=== PATIENT | male | born 1960 | race African-American/Black ===

== ENCOUNTER 2018-02-06 11:43 | Emergency (ER) | payer MEDICAID ==
[~2018-02-06] VITALS: Ht 177.8 cm; Wt 110.0 kg
[2018-02-06 11:46] VITALS: BP 157/95
[2018-02-06] MEDS ORDERED: LIDOCAINE HCL 1% 20ML VIAL (Pyxis) INJ MC ONE (14:30)
[2018-02-06] MEDS ORDERED: TETANUS, DIPHTHERIA, PERTUSSIS VAC/PF 0.5ML (>7YR OLD) IM ONE (14:30)
[2018-02-06] MEDS ORDERED: BACITRACIN ZINC OINT UDPKT TOP ONE (14:30)
== END 2018-02-06 18:49 | disposition home or self-care (01) ==
LOC: ER 11:43
DX: S61.411A Laceration without foreign body of right hand, initial encounter (principal); I10 Essential (primary) hypertension; W25.XXXA Contact with sharp glass, initial encounter; Y93.89 Activity, other specified; Y92.89 Other specified places as the place of occurrence of the external cause; Y99.8 Other external cause status
CPT/HCPCS: 12002; 90471; 90715; 99283; J3490; X7700

== ENCOUNTER 2021-01-23 11:05 | Inpatient (IN) | payer MEDICAID ==
[~2021-01-23] VITALS: Ht 182.9 cm; Wt 139.7 kg
[2021-01-23] VITALS (23 sets, daily range): BP systolic 79–109; BP diastolic 53–72
[2021-01-23] MEDS ORDERED: LEVOFLOXACIN 750MG PREMIX 150 ML IV ONE (11:45)
[2021-01-23] MEDS ORDERED: FUROSEMIDE 20MG/2ML VIAL IVP ONE (11:45)
[2021-01-23 11:58] LABS: BASOPHILS % 0.2 % (0.0-2.0); EOSINOPHILS % 0.2 % (0.0-5.0); HEMATOCRIT. 44.2 % (42.0-52.0); HEMOGLOBIN. 14.4 g/dL (14.0-18.0); LYMPHOCYTES % 10.6 % (20.0-50.0); MEAN CORPUSCULAR HEMOGLOBIN 29.9 pg (28.0-32.0); MEAN CORPUSCULAR VOLUME 91.6 fL (80.0-94.0); MONOCYTES % 1.1 % (2.0-8.0); NEUTROPHILS % 87.9 % (40.0-76.0); PLATELET 112 x1000/uL (130-400); RED BLOOD CELL COUNT 4.82 mill/uL (4.7-6.1); RED CELL DISTRIBUTION WIDTH 13.9 % (11.6-14.6)
[2021-01-23 12:00] LABS: CHLORIDE 100 mEq/L (98-107)
[2021-01-23] MEDS ORDERED: NITROGLYCERIN 0.4MG TABLET SL SL ONE (12:00)
[2021-01-23] MEDS ORDERED: LABETALOL 5MG/ML SYR 20 MG/4 ML SYRINGE IV ONE (12:15)
[2021-01-23] MEDS ORDERED: IPRATROPIUM BROMIDE (0.02%) 0.5MG/2.5ML NEB HHN STA (12:24)
[2021-01-23] MEDS ORDERED: MAGNESIUM 2 G PREMIX 50 ML IV STA (12:24)
[2021-01-23] MEDS ORDERED: ALBUTEROL (0.083%) 2.5MG/3ML NEB HHN STA (12:24)
[2021-01-23] MEDS ORDERED: METHYLPREDNISOLONE SOD SUCC 125 MG/2 ML VIAL IV STA (12:24)
[2021-01-23] MEDS ORDERED: ONDANSETRON HCL 4MG/2ML INJ IV PRN (13:15)
[2021-01-23] MEDS ORDERED: ACETAMINOPHEN 325MG TABLET PO PRN (13:15)
[2021-01-23] MEDS ORDERED: DIPHENHYDRAMINE 50MG/ML VIAL IV PRN (13:15)
[2021-01-23] MEDS: DEXAMETHASONE 10 MG/ML VIAL IV SCH (13:25)
[2021-01-23 13:58] LABS: BG BASE EXCESS 2.3 mmol/L (-2.0-2.0); BG CARBOXYHEMOGLOBIN 0.2 % (0.5-1.5); BG DEOXYHEMOGLOBIN 1.2 % (0.0-5.0); BG FRACTION INSPIRED OXYGEN 50; BG METHEMOGLOBIN 0.2 % (0.0-1.5); BG OXYGEN SATURATION 98.8 % (92.0-98.5); BG OXYHEMOGLOBIN 98.4 % (94.0-97.0); BG PCO2 37.8 mmHg (35.0-45.0); BG PH 7.456 (7.350-7.450); BG SAMPLE SITE LEFT BRACHIAL; BG TOTAL RESPIRATORY RATE 35 b/min; BG VENT MODE MASK - BIPAP
[2021-01-23] MEDS: AZITHROMYCIN 500 MG in DEXT 5% WATER 250 ML IV SCH (14:22)
[2021-01-23] MEDS: CEFTRIAXONE 1 G PREMIX 50 ML IV SCH (14:22)
[2021-01-23] MEDS ORDERED: ENOXAPARIN 80MG/0.8ML SYR SUBCUT ONE (15:45)
[2021-01-23] MEDS ORDERED: KCL 20MEQ/100ML PREMIX 100 ML IV NR (15:45)
[2021-01-23] MEDS ORDERED: ASPIRIN 81MG TABLET PO ONE (15:45)
[2021-01-23] MEDS ORDERED: NOREPINEPHRINE 32 MG in DEXT 5% WATER 218 ML IV PRN (16:00)
[2021-01-23] MEDS ORDERED: SODIUM CHLORIDE 0.9% 500 ML IV ONE (16:00)
[2021-01-23] MEDS: IPRATROPIUM BROMIDE (0.02%) 0.5MG/2.5ML NEB HHN SCH (21:11)
[2021-01-24] VITALS (33 sets, daily range): BP systolic 96–180; BP diastolic 56–106
[2021-01-24] MEDS: IPRATROPIUM BROMIDE (0.02%) 0.5MG/2.5ML NEB HHN SCH ×5 (00:13→21:35)
[2021-01-24] MEDS ORDERED: IOHEXOL-350 100 ML BOTTLE ONE (04:22)
[2021-01-24 05:46] LABS: HEMATOCRIT. 41.7 % (42.0-52.0); HEMOGLOBIN. 13.2 g/dL (14.0-18.0); MEAN CORPUSCULAR HEMOGLOBIN 29.4 pg (28.0-32.0); MEAN CORPUSCULAR VOLUME 92.5 fL (80.0-94.0); MEAN PLATELET VOLUME 10.2 fl (7.4-10.4); PLATELET 114 x1000/uL (130-400); RED CELL DISTRIBUTION WIDTH 13.8 % (11.6-14.6)
[2021-01-24 06:19] LABS: CHLORIDE 101 mEq/L (98-107)
[2021-01-24 06:24] LABS: LDL CHOLESTEROL 74 mg/dL (5-100)
[2021-01-24 06:27] LABS: HDL CHOLESTEROL 38 mg/dL (40-59)
[2021-01-24 07:33] LABS: PLATELET ESTIMATE SLIGHTLY DECREASED
[2021-01-24] MEDS: PANTOPRAZOLE SODIUM 40 MG/VIAL IV SCH ×2 (09:00→09:39)
[2021-01-24] MEDS: CEFTRIAXONE 1 G PREMIX 50 ML IV SCH (09:00)
[2021-01-24] MEDS: ENOXAPARIN 40MG/0.4ML SYR SUBCUT SCH ×2 (09:00→09:39)
[2021-01-24] MEDS: AZITHROMYCIN 500 MG in DEXT 5% WATER 250 ML IV SCH ×2 (09:00→09:39)
[2021-01-24] MEDS: DEXAMETHASONE 10 MG/ML VIAL IV SCH (09:39)
[2021-01-24] MEDS ORDERED: DEXTROSE 50% WATER 50ML SYRINGE IV PRN (12:15)
[2021-01-24 12:43] LABS: CLARITY URINE CLOUDY (CLEAR); COLOR URINE ORANGE (YELLOW); KETONES URINE NEGATIVE (NEGATIVE); LEUKOCYTE ESTERASE URINE 1+ (NEGATIVE); NITRITE URINE NEGATIVE (NEGATIVE); OCCULT BLOOD URINE 3+ (NEGATIVE); PROTEIN URINE 2+ (NEGATIVE); SPECIFIC GRAVITY URINE 1.024 (1.005-1.030)
[2021-01-24] MEDS: BLOOD SUGAR DIAGNOSTIC STRIP TEST SCH ×2 (17:04→21:00)
[2021-01-24] MEDS: INSULIN LISPRO 100 UNITS/ML SUBCUT SCH ×2 (17:11→22:36)
[2021-01-24] MEDS ORDERED: AMIKACIN SULFATE 700 MG in SODIUM CHLORIDE 0.9% 100 ML IV NR (22:30)
[2021-01-25] VITALS (10 sets, daily range): BP systolic 116–152; BP diastolic 63–89
[2021-01-25] MEDS: BLOOD SUGAR DIAGNOSTIC STRIP TEST SCH ×4 (06:50→20:45)
[2021-01-25] MEDS: INSULIN LISPRO 100 UNITS/ML SUBCUT SCH ×4 (07:20→20:51)
[2021-01-25 07:32] LABS: CHLORIDE 100 mEq/L (98-107)
[2021-01-25] MEDS: IPRATROPIUM BROMIDE (0.02%) 0.5MG/2.5ML NEB HHN SCH ×3 (08:01→20:29)
[2021-01-25 08:22] LABS: HEMATOCRIT. 40.7 % (42.0-52.0); HEMOGLOBIN. 13.2 g/dL (14.0-18.0); MEAN CORPUSCULAR HEMOGLOBIN 29.1 pg (28.0-32.0); MEAN CORPUSCULAR VOLUME 89.7 fL (80.0-94.0); MEAN PLATELET VOLUME 10.1 fl (7.4-10.4); PLATELET 116 x1000/uL (130-400); RED BLOOD CELL COUNT 4.53 mill/uL (4.7-6.1); RED CELL DISTRIBUTION WIDTH 13.8 % (11.6-14.6)
[2021-01-25] MEDS ORDERED: CEFTRIAXONE 1,000 MG in DEXTROSE 5% WATER 50 ML IV SCH (09:00)
[2021-01-25] MEDS: ENOXAPARIN 40MG/0.4ML SYR SUBCUT SCH ×2 (10:06→20:45)
[2021-01-25] MEDS: PANTOPRAZOLE SODIUM 40 MG/VIAL IV SCH (10:07)
[2021-01-25] MEDS: AZITHROMYCIN 500 MG in DEXT 5% WATER 250 ML IV SCH (10:07)
[2021-01-25] MEDS: CLONIDINE 0.1MG TABLET PO PRN (15:54)
[2021-01-25 16:47] LABS: PLATELET ESTIMATE DECREASED
[2021-01-26] VITALS: BP 132/62
[2021-01-26 02:00] VITALS: BP 146/91
[2021-01-26] MEDS: IPRATROPIUM BROMIDE (0.02%) 0.5MG/2.5ML NEB HHN SCH ×2 (02:13→08:32)
[2021-01-26] MEDS: CLONIDINE 0.1MG TABLET PO PRN (03:18)
[2021-01-26 04:00] VITALS: BP 166/86
[2021-01-26] MEDS: BLOOD SUGAR DIAGNOSTIC STRIP TEST SCH (06:59)
[2021-01-26] MEDS: INSULIN LISPRO 100 UNITS/ML SUBCUT SCH (07:20)
[2021-01-26 08:47] LABS: BASOPHILS % 0.2 % (0.0-2.0); HEMATOCRIT. 43.6 % (42.0-52.0); HEMOGLOBIN. 14.3 g/dL (14.0-18.0); LYMPHOCYTES % 7.9 % (20.0-50.0); MEAN CORPUSCULAR HEMOGLOBIN 29.7 pg (28.0-32.0); MEAN CORPUSCULAR VOLUME 90.5 fL (80.0-94.0); MEAN PLATELET VOLUME 10.2 fl (7.4-10.4); MONOCYTES % 4.3 % (2.0-8.0); NEUTROPHILS % 87.6 % (40.0-76.0); PLATELET 145 x1000/uL (130-400); RED BLOOD CELL COUNT 4.82 mill/uL (4.7-6.1); RED CELL DISTRIBUTION WIDTH 13.7 % (11.6-14.6)
[2021-01-26 08:57] LABS: CHLORIDE 99 mEq/L (98-107)
[2021-01-26] MEDS: AZITHROMYCIN 500 MG in DEXT 5% WATER 250 ML IV SCH (09:00)
[2021-01-26] MEDS: ENOXAPARIN 40MG/0.4ML SYR SUBCUT SCH (09:00)
[2021-01-26] MEDS: PANTOPRAZOLE SODIUM 40 MG/VIAL IV SCH (09:00)
[2021-01-26] MEDS ORDERED: CEFTRIAXONE 2 G in DEXTROSE 5% WATER 50 ML IV SCH (09:00)
== END 2021-01-26 09:05 | disposition left against medical advice (07) | DRG 720 ==
LOC: ER 11:12 → ENRESERV 15:43 → MICUSO 16:38 → 3WST 01-24 18:25
PROVIDERS: ADMIT Internal Medicine; ATTEND Internal Medicine
PROC: 5A09357 Assistance with Respiratory Ventilation, Less than 24 Consecutive Hours, Continuous Positive Airway Pressure (ICD-10-PCS; principal; 2021-01-23)
DX: A41.51 Sepsis due to Escherichia coli [E. coli] (principal); E44.1 Mild protein-calorie malnutrition; E78.5 Hyperlipidemia, unspecified; E87.6 Hypokalemia; I11.0 Hypertensive heart disease with heart failure; I50.41 Acute combined systolic (congestive) and diastolic (congestive) heart failure; J18.9 Pneumonia, unspecified organism; J44.0 Chronic obstructive pulmonary disease with (acute) lower respiratory infection; N39.0 Urinary tract infection, site not specified; R65.21 Severe sepsis with septic shock; Z20.822 Contact with and (suspected) exposure to COVID-19; E66.9 Obesity, unspecified; J96.01 Acute respiratory failure with hypoxia; G92 Toxic encephalopathy; D69.6 Thrombocytopenia, unspecified; N10 Acute pyelonephritis; M48.00 Spinal stenosis, site unspecified; E11.65 Type 2 diabetes mellitus with hyperglycemia; Z53.29 Procedure and treatment not carried out because of patient's decision for other reasons; Z68.41 Body mass index [BMI] 40.0-44.9, adult
CPT/HCPCS: 36415; 36600; 71045; 71275; 74176; 76770; 80048; 80053; 80061; 81003; 82375; 82728; 82805; 82962; 83036; 83605; 83615; 83880; 84145; 84153; 84484; 85025; 85379; 86141; 87077; 87186; 93005; 93970; 94640; 94660; 99291; C9113; J0278; J0456; J0696; J1100; J1650; J1815; J1956; J2930; J3475; J3480; J7050; J7060; Q9967; U0003; G0103

== ENCOUNTER 2025-01-06 18:11 | Emergency (ER) | payer OTHER ==
[~2025-01-06] VITALS: Ht 172.7 cm; Wt 78.0 kg
[~2025-01-06 18:11] MED LIST: POTA10CA93 MT; PROT40 MT
[2025-01-06 18:20] VITALS: O2SAT 98
[2025-01-06] MEDS: SODIUM CHLORIDE 0.9% 1,000 ML IV ONE (18:54)
[2025-01-06] MEDS: ONDANSETRON HCL 4MG/2ML INJ IV STA (19:01)
[2025-01-06] MEDS: KETOROLAC 30MG/ML VIAL IV STA (19:01)
[2025-01-06] MEDS: CEFTRIAXONE 1GM/50ML 50 ML IV ONE (19:01)
[2025-01-06 20:15] LABS: BASOPHILS % 0.7 % (0.0-2.0); DIFFERENTIAL COMMENT 0; EOSINOPHILS % 1.6 % (0.0-5.0); HEMATOCRIT. 38.2 % (42.0-52.0); HEMOGLOBIN. 12.6 g/dL (14.0-18.0); LYMPHOCYTES % 24.8 % (20.0-50.0); MEAN CORPUSCULAR HEMOGLOBIN 30.3 pg (28.0-32.0); MEAN CORPUSCULAR HGB CONC 33.1 g/dL (31.0-37.0); MEAN CORPUSCULAR VOLUME 91.6 fL (80.0-94.0); MEAN PLATELET VOLUME 8.1 fl (7.4-10.4); MONOCYTES % 12.9 % (2.0-8.0); PLATELET 323 x1000/uL (130-400); RED BLOOD CELL COUNT 4.18 mill/uL (4.7-6.1); RED CELL DISTRIBUTION WIDTH 13.9 % (11.6-14.6); WHITE BLOOD COUNT 5.5 x1000/uL (4.5-11.0)
[2025-01-06 20:25] LABS: CARBON DIOXIDE 35 mEq/L (21-32); CHLORIDE 97 mEq/L (98-107); POTASSIUM 3.1 mEq/L (3.5-5.1); SODIUM 138 mEq/L (136-145)
[2025-01-06 20:26] LABS: CALCIUM 8.4 mg/dL (8.7-10.4)
[2025-01-06 20:27] LABS: INR 1.1; PARTIAL THROMBOPLASTIN TIME 31.6 sec (23.4-31.0); PROTHROMBIN TIME 11.7 sec (9.6-11.0)
[2025-01-06 20:30] LABS: CREATININE 0.6 mg/dL (0.6-1.3)
[2025-01-06 20:31] LABS: GLUCOSE 93 mg/dL (70-105); TROPONIN I HIGH SENSITIVITY 12 ng/L (3.0-53); UREA NITROGEN BLOOD 10 mg/dL (9-23)
[2025-01-06 20:32] LABS: ALANINE AMINOTRANSFERASE 17 IU/L (10-49); ALBUMIN 3.5 g/dL (3.2-4.8); ASPARTATE AMINOTRANSFERASE 24 IU/L (<34)
[2025-01-06 20:33] LABS: BILIRUBIN DIRECT 0.2 mg/dL (<=3.0); BILIRUBIN TOTAL 0.5 mg/dL (0.1-1.0); PROTEIN TOTAL 6.9 g/dL (6.0-8.3)
[2025-01-06] MEDS: METRONIDAZOLE 500 MG PREMIX 100 ML IV ONE (20:45)
[2025-01-06 21:28] LABS: CLARITY URINE CLEAR (CLEAR); COLOR URINE YELLOW (YELLOW); GLUCOSE URINE NEGATIVE (NEGATIVE); KETONES URINE NEGATIVE (NEGATIVE); LEUKOCYTE ESTERASE URINE 2+ (NEGATIVE); NITRITE URINE POSITIVE (NEGATIVE); OCCULT BLOOD URINE 1+ (NEGATIVE); PROTEIN URINE NEGATIVE (NEGATIVE); SPECIFIC GRAVITY URINE 1.018 (1.005-1.030)
[2025-01-06] MEDS: POTASSIUM CHLORIDE 20MEQ/PACKET PO ONE (21:38)
[2025-01-06 21:41] LABS: BACTERIA URINE 2+; RBC URINE 0-2 /hpf (0-2); SQUAMOUS EPITHELIAL CELL URINE 1+ /lpf (RARE/1+)
[2025-01-06 22:58] VITALS: BP 133/82; PULSE 85; RESP 20; TEMP 36.7; O2SAT 98
== END 2025-01-06 23:21 | disposition short-term general hospital (02) ==
LOC: ER 18:11
DX: R10.31 Right lower quadrant pain (principal); N39.0 Urinary tract infection, site not specified; N39.498 Other specified urinary incontinence; I10 Essential (primary) hypertension; J44.9 Chronic obstructive pulmonary disease, unspecified; E87.6 Hypokalemia; Z79.899 Other long term (current) drug therapy; Z98.890 Other specified postprocedural states
CPT/HCPCS: 99285; 74176; 96365; 96375; 71045; 96367; 96366; 80076; 80048; 81003; 83880; 83690; 83735; 85025; 85610; 85730; 87086; 84484; 36415; 93005; J1885; J0696; J3490; J2405; J7030

== ENCOUNTER 2025-01-08 21:04 | Emergency (ER) | payer OTHER ==
[~2025-01-08] VITALS: Ht 177.8 cm; Wt 125.0 kg
[2025-01-08] MEDS: TETANUS, DIPHTHERIA, PERTUSSIS VAC/PF 0.5ML (>10YR OLD) IM ONE (00:30)
[2025-01-08] MEDS: DIPHENHYDRAMINE 50MG/ML VIAL IM ONE (00:31)
[2025-01-08] MEDS: HALOPERIDOL LACTATE 5MG/ML VIAL IM ONE (00:31)
[2025-01-08] MEDS: LORAZEPAM 2MG/ML INJ IM ONE (00:31)
[2025-01-08 21:07] VITALS: O2SAT 100
[2025-01-08 22:09] LABS: BASOPHILS % 0.6 % (0.0-2.0); DIFFERENTIAL COMMENT 0; EOSINOPHILS % 3.1 % (0.0-5.0); HEMATOCRIT. 41.2 % (42.0-52.0); HEMOGLOBIN. 13.6 g/dL (14.0-18.0); LYMPHOCYTES % 30.7 % (20.0-50.0); MEAN CORPUSCULAR HEMOGLOBIN 30.7 pg (28.0-32.0); MEAN PLATELET VOLUME 7.8 fl (7.4-10.4); MONOCYTES % 11.4 % (2.0-8.0); NEUTROPHILS % 54.2 % (40.0-76.0); PLATELET 359 x1000/uL (130-400); RED BLOOD CELL COUNT 4.42 mill/uL (4.7-6.1); RED CELL DISTRIBUTION WIDTH 14.3 % (11.6-14.6); WHITE BLOOD COUNT 5.3 x1000/uL (4.5-11.0)
[2025-01-08 22:16] LABS: CHLORIDE 102 mEq/L (98-107); POTASSIUM 4.1 mEq/L (3.5-5.1); SODIUM 138 mEq/L (136-145)
[2025-01-08 22:17] LABS: CARBON DIOXIDE 27 mEq/L (21-32)
[2025-01-08 22:22] LABS: CREATININE 0.5 mg/dL (0.6-1.3); GLUCOSE 94 mg/dL (70-105)
[2025-01-08 22:23] LABS: UREA NITROGEN BLOOD 10 mg/dL (9-23)
[2025-01-08 22:24] LABS: ALANINE AMINOTRANSFERASE 17 IU/L (10-49); ALBUMIN 3.8 g/dL (3.2-4.8); ASPARTATE AMINOTRANSFERASE 21 IU/L (<34); TROPONIN I HIGH SENSITIVITY 10 ng/L (3.0-53)
[2025-01-08 22:25] LABS: BILIRUBIN DIRECT 0.1 mg/dL (<=3.0); BILIRUBIN TOTAL 0.3 mg/dL (0.1-1.0); PROTEIN TOTAL 7.7 g/dL (6.0-8.3)
[2025-01-09 08:03] LABS: *AMPHETAMINES SCREEN URINE NEGATIVE (NEGATIVE); *BENZODIAZEPINES SCREEN URINE NEGATIVE (NEGATIVE)
[2025-01-09 08:04] LABS: *BARBITURATES SCREEN URINE NEGATIVE (NEGATIVE); *COCAINE SCREEN URINE NEGATIVE (NEGATIVE); CANNABINOID URINE SCREEN NEGATIVE (NEGATIVE); ECSTASY MDMA SCREEN URINE NEGATIVE (NEGATIVE); METHADONE URINE SCREEN NEGATIVE (NEGATIVE); OPIATES URINE SCREEN NEGATIVE (NEGATIVE); PHENCYCLIDINE URINE SCREEN NEGATIVE (NEGATIVE)
[2025-01-09 08:12] LABS: CLARITY URINE CLEAR (CLEAR); COLOR URINE YELLOW (YELLOW); GLUCOSE URINE NEGATIVE (NEGATIVE); KETONES URINE NEGATIVE (NEGATIVE); LEUKOCYTE ESTERASE URINE NEGATIVE (NEGATIVE); NITRITE URINE NEGATIVE (NEGATIVE); OCCULT BLOOD URINE NEGATIVE (NEGATIVE); PH URINE 8.5 (4.5-8.0); PROTEIN URINE NEGATIVE (NEGATIVE)
[2025-01-10] MEDS: OLANZAPINE 5MG TABLET ODT PO SCH (09:00)
[2025-01-10] MEDS: ZIPRASIDONE MESYLATE 20MG/VIAL IM ONE (19:50)
[2025-01-11 12:11] VITALS: BP 134/85; PULSE 94; RESP 14; TEMP 36.7; O2SAT 100
== END 2025-01-11 12:55 | disposition home or self-care (01) ==
LOC: ER 21:04
DX: S00.01XA Abrasion of scalp, initial encounter (principal); R51.9 Headache, unspecified; J44.9 Chronic obstructive pulmonary disease, unspecified; I11.9 Hypertensive heart disease without heart failure; Z20.822 Contact with and (suspected) exposure to COVID-19; Z79.899 Other long term (current) drug therapy; W22.09XA Striking against other stationary object, initial encounter; Y93.89 Activity, other specified; Y92.89 Other specified places as the place of occurrence of the external cause; Y99.8 Other external cause status
CPT/HCPCS: 80076; 80053; 80305; 81003; 80307; 80329; 80320; 83880; 83690; 85025; 87086; 84484; 36415; 71045; 93005; 90471; 96372 ×2; 99285; 87426; 70450; 74176; 90715; J1200; J1630; J2060; J3486; G0480